=== PATIENT | female | born 1975 | race Two or more races ===

== ENCOUNTER 2024-04-06 13:26 | Emergency (ER) | payer OTHER ==
[~2024-04-06] VITALS: Ht 165.1 cm; Wt 74.8 kg
[~2024-04-06 13:26] MED LIST: CIPRO500 MG; CLEOCIN HCL75 MG; DIFLUCAN400 MG/200
[2024-04-06] MEDS ORDERED: KEYTRUDA100 MG/4 M IV (14:01)
[2024-04-06] MEDS ORDERED: KETOROLAC TROMETHAMINE 30 MG VIAL IM ONE (15:30)
[2024-04-06] MEDS ORDERED: ORPHENADRINE CITRATE 30 MG/ML AMPUL IM ONE (15:30)
== END 2024-04-06 17:23 | disposition home or self-care (01) ==
LOC: ER 13:28
DX: M54.2 Cervicalgia (principal); R21 Rash and other nonspecific skin eruption